=== PATIENT | female | born 1990 | race Two or more races ===

== ENCOUNTER 2020-02-25 01:12 | Inpatient (IN) | payer MEDICAID ==
[~2020-02-25] VITALS: Ht 167.6 cm; Wt 118.4 kg
[2020-02-25] MEDS ORDERED: PREN-176 PO (01:53)
[2020-02-25] MEDS ORDERED: FERR-71 PO (01:53)
[2020-02-25] MEDS ORDERED: LIDOCAINE HCL 1% 20ML VIAL (Pyxis) INJ INFIL SCH (02:30)
[2020-02-25] MEDS ORDERED: NALOXONE HCL 0.4 MG/ML 1ML VIAL IM PRN (02:30)
[2020-02-25] MEDS ORDERED: METHYLERGONOVINE MALEATE 0.2 MG/ML IM PRN (02:30)
[2020-02-25] MEDS ORDERED: MISOPROSTOL 100MCG TABLET VG PRN (02:45)
[2020-02-25] MEDS: LACTATED RINGERS 1,000 ML IV SCH ×4 (03:14→23:02)
[2020-02-25 03:44] LABS: BASOPHILS % 0.3 % (0.0-2.0); EOSINOPHILS % 2.1 % (0.0-5.0); HEMATOCRIT. 31.6 % (36.0-48.0); HEMOGLOBIN. 10.1 g/dL (12.0-16.0); LYMPHOCYTES % 32.4 % (20.0-50.0); MEAN CORPUSCULAR VOLUME 78.1 fL (81.0-99.0); MEAN PLATELET VOLUME 10.3 fl (7.4-10.4); MONOCYTES % 8.1 % (2.0-8.0); NEUTROPHILS % 57.1 % (40.0-76.0); PLATELET 178 x1000/uL (130-400); RED BLOOD CELL COUNT 4.05 mill/uL (4.2-5.4); RED CELL DISTRIBUTION WIDTH 15.9 % (11.6-14.6)
[2020-02-25 03:45] LABS: CLARITY URINE CLEAR (CLEAR); COLOR URINE YELLOW (YELLOW); KETONES URINE NEGATIVE (NEGATIVE); LEUKOCYTE ESTERASE URINE 3+ (NEGATIVE); NITRITE URINE NEGATIVE (NEGATIVE); OCCULT BLOOD URINE 2+ (NEGATIVE); PROTEIN URINE NEGATIVE (NEGATIVE); SPECIFIC GRAVITY URINE 1.008 (1.005-1.030)
[2020-02-25 03:53] LABS: PARTIAL THROMBOPLASTIN TIME 25.5 sec (23.4-31.0); PROTHROMBIN TIME 10.1 sec (9.6-11.0)
[2020-02-25 03:54] LABS: *BARBITURATES SCREEN URINE NEGATIVE (NEGATIVE); *BENZODIAZEPINES SCREEN URINE NEGATIVE (NEGATIVE)
[2020-02-25 03:55] LABS: *AMPHETAMINES SCREEN URINE NEGATIVE (NEGATIVE); *COCAINE SCREEN URINE NEGATIVE (NEGATIVE); METHADONE URINE SCREEN NEGATIVE (NEGATIVE); OPIATES URINE SCREEN NEGATIVE (NEGATIVE); PHENCYCLIDINE URINE SCREEN NEGATIVE (NEGATIVE)
[2020-02-25 03:57] LABS: CANNABINOID URINE SCREEN NEGATIVE (NEGATIVE)
[2020-02-25 04:24] LABS: HEPATITIS B SURFACE ANTIGEN NEGATIVE
[2020-02-25] MEDS: DEXT 5%/LR + PITOCIN 20UNITS/L 1,000 ML IV SCH (15:09)
[2020-02-25] MEDS: BUTORPHANOL TARTRATE 2 MG/ML VIAL IV PRN ×2 (17:38→23:04)
[2020-02-26] MEDS ORDERED: ROPIVACAINE HCL/PF EPIDURAL 200 ML EPI SCH (00:45)
[2020-02-26] MEDS: LACTATED RINGERS 1,000 ML IV SCH (05:35)
[2020-02-26] MEDS ORDERED: BUTORPHANOL TARTRATE 2 MG/ML VIAL IM PRN (06:00)
[2020-02-26] MEDS: DEXT 5%/LR + PITOCIN 20UNITS/L 1,000 ML IV SCH ×2 (06:16→06:21)
[2020-02-26] MEDS ORDERED: CITRIC ACID/SODIUM CITRATE SOLN 30ML UDC PO NR (06:56)
[2020-02-26] MEDS ORDERED: BISACODYL 10MG SUPP PR PRN (07:30)
[2020-02-26] MEDS ORDERED: LANOLIN OINT 7GM TUBE TOP PRN (07:30)
[2020-02-26] MEDS ORDERED: GLYCERIN/WITCH HAZEL LEAF MEDICATED PAD TOP PRN (07:30)
[2020-02-26] MEDS ORDERED: OXYCODONE HCL/ACETAMINOPHEN 5/325MG TABLET PO PRN (07:30)
[2020-02-26] MEDS ORDERED: IBUPROFEN 400MG TABLET PO PRN (07:30)
[2020-02-26] MEDS ORDERED: DIPHENHYDRAMINE 25MG CAPSULE PO PRN (07:30)
[2020-02-26] MEDS ORDERED: HEMORRHOIDAL SUPP PR PRN (07:30)
[2020-02-26] MEDS: PRENATAL VIT/FE FUMARATE/FA TABLET PO SCH (09:37)
[2020-02-26] MEDS: SIMETHICONE 80MG TABLET CHEW PO SCH ×4 (09:38→21:07)
[2020-02-26] MEDS: IBUPROFEN 800MG TABLET PO PRN (09:38)
[2020-02-26 10:00] VITALS: BP 105/58
[2020-02-26 10:30] VITALS: BP 102/60
[2020-02-26 20:00] VITALS: BP_SYST 100; BP_SYST 124; BP_DIAS 55; BP_DIAS 64
[2020-02-26] MEDS ORDERED: DOCUSATE SODIUM 100MG CAPSULE PO SCH (21:00)
[2020-02-27 04:00] VITALS: BP_SYST 102; BP_SYST 95; BP_DIAS 52; BP_DIAS 53
[2020-02-27 07:30] LABS: BASOPHILS % 0.4 % (0.0-2.0); EOSINOPHILS % 1.1 % (0.0-5.0); HEMATOCRIT. 26.3 % (36.0-48.0); HEMOGLOBIN. 8.4 g/dL (12.0-16.0); LYMPHOCYTES % 19.3 % (20.0-50.0); MEAN CORPUSCULAR VOLUME 78.2 fL (81.0-99.0); MONOCYTES % 4.5 % (2.0-8.0); NEUTROPHILS % 74.7 % (40.0-76.0); PLATELET 162 x1000/uL (130-400); RED BLOOD CELL COUNT 3.37 mill/uL (4.2-5.4); RED CELL DISTRIBUTION WIDTH 15.5 % (11.6-14.6)
[2020-02-27] MEDS ORDERED: FERROUS SULFATE 325MG TABLET PO SCH (07:30)
[2020-02-27 07:52] VITALS: BP 102/53
[2020-02-27] MEDS: SIMETHICONE 80MG TABLET CHEW PO SCH (08:29)
[2020-02-27] MEDS: IBUPROFEN 800MG TABLET PO PRN (08:29)
[2020-02-27] MEDS: PRENATAL VIT/FE FUMARATE/FA TABLET PO SCH (08:29)
== END 2020-02-27 11:50 | disposition home or self-care (01) | DRG 560 ==
LOC: OBSVTOIN 01:12 → 8 EST LDRP 01:12 → 8EST 02-26 09:23
PROVIDERS: ADMIT Specialist; ATTEND Specialist
PROC: 3E0R3BZ Introduction of Anesthetic Agent into Spinal Canal, Percutaneous Approach (ICD-10-PCS; principal; 2020-02-27)
PROC: 10E0XZZ Delivery of Products of Conception, External Approach (ICD-10-PCS; 2020-02-27)
PROC: 00HU33Z Insertion of Infusion Device into Spinal Canal, Percutaneous Approach (ICD-10-PCS; 2020-02-27)
DX: O24.429 Gestational diabetes mellitus in childbirth, unspecified control (principal); O99.214 Obesity complicating childbirth; O99.334 Smoking (tobacco) complicating childbirth; E66.9 Obesity, unspecified; Z37.0 Single live birth; Z3A.39 39 weeks gestation of pregnancy; Z79.899 Other long term (current) drug therapy; O69.81X0 Labor and delivery complicated by cord around neck, without compression, not applicable or unspecified
CPT/HCPCS: 36415; 80305; 81003; 82962; 85025; 86592; 86703; 86762; 86850; 86900; 87340; J0595; J2590; J2795; J7120